=== PATIENT | female | born 2005 | race Caucasian/White ===

== ENCOUNTER 2023-05-11 10:35 | Outpatient (CLI) | payer OTHER, SELFPAY ==
[2023-05-11 12:25] LABS: Basophils Percent Auto 0.3 % (0.2-1.2); Eosinophils Absolute Auto 0.1 K/mm3 (0-0.3); Eosinophils Percent Auto 1.1 % (0-4.4); Hemoglobin 12.2 g/dL (12.0-15.0); Immature Granulocyte Absolute 0.06 K/mm3 (0.00-0.031); Immature Granulocyte Percent A 0.5 % (0-0.5); Lymphocytes Absolute Auto 2.13 K/mm3 (0.9-3.2); Lymphocytes Percent Auto 17.9 % (18.3-44.2); Mean Corpuscular Hemoglobin 29.3 pg (26-34); Mean Corpuscular Volume 88.9 fl (80-100); Mean Platelet Volume 8.8 fl (7.4-10.4); Monocytes Absolute Auto 0.6 K/mm3 (0.1-0.6); Monocytes Percent Auto 5.2 % (2.6-8.5); Neutrophils Absolute Auto 8.9 K/mm3 (1.3-6.7); Platelet Count Result 304 k/mm3 (150-375); Red Blood Count 4.16 M/mm3 (4.2-5.4); White Blood Count 11.9 K/mm3 (4.5-10.0)
[2023-05-11 12:36] LABS: Glucose 1 Hour PP 50gm Dose 102 mg/dL
[2023-05-11 13:13] LABS: Hepatitis B Surface Antigen Negative (Negative)
[2023-05-11 13:19] LABS: HIV 1/2 Ab P24 Ag Result Negative (Negative)
[2023-05-11 13:55] LABS: Rubella IgG Antibody > 110.0 IU/ML
[2023-05-14 07:41] LABS: Rapid Plasma Reagin Non-Reactive (NonReactive)
[2023-05-16 04:57] LABS: Varicella IgG Antibody <135.00 Index (>=165.00)
[2023-05-16 11:37] LABS: CMV IgG Antibody <0.60 U/mL (<0.60)
== END 2023-05-11 10:36 | disposition home or self-care (01) ==
PROVIDERS: PCP Pediatrics; Visit Provider Obstetrics & Gynecology
DX: N94.89 Other specified conditions associated with female genital organs and menstrual cycle (principal); N91.2 Amenorrhea, unspecified; E66.9 Obesity, unspecified
CPT/HCPCS: 36415; 82947; 84443; 84702; 85025; 86592; 86644; 86703; 86747; 86762; 86787; 86850; 86900; 86901; 87086; 87340; G0432

== ENCOUNTER → 2023-05-14 11:43 | Outpatient (CLI) | payer OTHER, SELFPAY ==
--- NOTE | ~2023-05-14 | US_ITS ---
EXAMINATION: US OB <=14 wk fetus w TV DATE: 05/14/2023 12:05 INDICATION: Status post dating of during first trimester TECHNIQUE: Real-time pelvic ultrasound utilizing both a transvaginal and transabdominal probe was pe rformed. The interpreting radiologist was not present for the study. COMPARISON: None. FINDINGS: The uterus measures 8.2 x 4.5 x 6.0 cm. There is an intrauterine gestational sac. A yolk sac and fet al pole are identified. The crown rump length measures 1.2 cm, which correlates with an estimated ges tational age of 7 weeks and 3 days. heart motion is identified measuring 143 beats per minute ( bpm) by M-mode Doppler. The right ovary is not visualized The left ovary measures 3.9 x 3.9 x 3.3 cm. 3.1 cm anechoic cyst/fo llicle at the left ovary. There is no free fluid in the pelvis. IMPRESSION: 1. Single living fetus heart rate of 143 bpm. 2. Gestational age by ultrasound of 7 weeks 3 day(s) +/- 5 day(s) with ultrasound estimated date of delivery (RAFAEL) of 12/28/2023. Reviewed, dictated and finalized at location A. IMPRESSION: 1. Single living fetus heart rate of 143 bpm. 2. Gestational age by ultrasound of 7 weeks 3 day(s) +/- 5 day(s) with ultraso und estimated date of delivery (RAFAEL) of 12/28/2023.
== END ==
PROVIDERS: PCP Obstetrics & Gynecology; Visit Provider Obstetrics & Gynecology
DX: Z36.89 Encounter for other specified antenatal screening (principal); Z3A.01 Less than 8 weeks gestation of pregnancy
CPT/HCPCS: 76801; 76817

== ENCOUNTER → 2023-08-17 11:18 | Outpatient (CLI) | payer OTHER, SELFPAY ==
--- NOTE | ~2023-08-17 | US_ITS ---
EXAMINATION: US OB /maternal detail DATE: 08/17/2023 11:48 INDICATION: Encounter for supervision of normal . TECHNIQUE: Real-time ultrasound of the pelvis was performed. COMPARISON: Ultrasound 05/14/2023 FINDINGS: There is a single living fetus in vertex presentation. The placenta is anterior, 7.5 cm from the cer vix. The cervical length is 2.7 cm on transabdominal images, which is normal.. heart rate is 12 3 beats per minute (bpm). The amniotic fluid volume is subjectively normal. The following biometric data were obtained: Biparietal diameter (BPD): 5.3 cm; head circumference (HC): 19.4 cm; abdominal circumference (AC): 15 .7 cm; femur length (FL): 3.5 cm. These measurements are concordant. Estimated weight is 393 g +/- 59 g, which correlates with the 45th percentile when 12/28/23 is u sed as estimated date of delivery. As single measurements, these parameters are each equal to the following estimated gestational ages: BPD: 22 weeks 0 days. HC: 21 weeks 4 days. AC: 20 weeks 6 days. FL: 21 weeks 0 days. estimated gestational age based solely on measurements from this exam is 21 weeks 3 days +/- 1 weeks 3 days. The cerebral ventricles, cerebellum, cisterna magna, nuchal fold, lip, and visualized portions of the spine are normal. The heart is normal. The diaphragm, stomach, kidneys, and bladder are normal. Ther e are two umbilical arteries to yield a 3-vessel cord. The cord insertion is normal. IMPRESSION: 1. Single living fetus in vertex presentation. 2. Estimated weight is 393 g +/- 59 g, which correlates with the 45th percentile when 12/28/23 is used as estimated date of delivery. This date was set by ultrasound on 05/14/2023. 3. Normal anatomic survey. Reviewed, dictated and finalized at location A. TER HELPER SIGN IMPRESSION: 1. Single living fetus in vertex presentation. 2. Estimated weight is 393 g +/- 59 g, which correlates with the 45th pe rcentile when 12/28/23 is used as estimated date of delivery. This date was set by ultrasound on 05/14/2023. 3. Normal anatomic survey.
== END ==
PROVIDERS: PCP Obstetrics & Gynecology; Visit Provider Obstetrics & Gynecology
DX: Z34.92 Encounter for supervision of normal pregnancy, unspecified, second trimester (principal)
CPT/HCPCS: 76805

== ENCOUNTER 2023-09-11 15:45 | Observation (INO) | payer OTHER, SELFPAY ==
--- NOTE | ~2023-09-11 | US_ITS ---
EXAMINATION: US OB transvaginal DATE: 09/11/2023 INDICATION: cervical length 24wks . TECHNIQUE: Real-time ultrasound of the pelvis was performed. COMPARISON: 05/14/2023 FINDINGS: There is a single living fetus in breech presentation, longitudinal lie. The placenta is anterior, w ell distant from the cervix. heart rate is 140 bpm. Cervical length 3.7 cm. There is fluid in t he endocervical canal. Mild V-shaped cervical funneling measuring 6 mm. IMPRESSION: Single living fetus in breech presentation. Minimal cervical funneling, with fluid in the endocervical canal may reflect a degree of cervical inc ompetence. Reviewed, dictated and finalized at location K. ITY TECH IMPRESSION: Single living fetus in breech presentation. Minimal cervical funneling, with fluid in the endocervical canal may reflect a degree of cervical incompetence.
[2023-09-11 16:02] VITALS: TEMP 36.6
[2023-09-11 16:08] VITALS: BP 115/65; PULSE 87
[2023-09-11 16:26] VITALS: BMI 48.6
[2023-09-11 16:51] LABS: Appearance Urine Cloudy (Clear); Bacteria Urine 3+ /hpf; Bilirubin Urine Negative (Negative); Blood Urine Negative (Negative); Color Urine Yellow (Yellow); Glucose Urine UA Negative (Negative); Ketones Urine Negative (Negative); Leukocyte Esterase Ur Negative LEU/UL (NEGATIVE); Need Manual Microscopic Reviewed; Nitrate Urine Negative (Negative); Non Pathogenic Casts 0-2; Protein Urine Negative (Negative); RBC Urine 0-2 /hpf (0-2); Specific Grav Ur 1.029 (1.001-1.035); Squamous Epithelial Cell Urine Many /hpf (Few); Urobilinogen Urine 0.2 mg/dL (<2.0); WBC Urine 21-50 /hpf (0-3)
[2023-09-11 17:06] LABS: Add Urine Microscopic? YES
--- NOTE | 2023-09-11 17:10 | PC.NURSE ---
Called Dr. Upton reported ultrasound report, reassuring tracing with no contractions. UA result reported. discharge order received
--- NOTE | 2023-09-12 09:01 | PM.OBTRLD ---
OB - Triage/Final Diagnosis Visit Information Reason for evaluation: threatened labor Comments/Additional reasons for admission: I have assessed the risk for this patient, Ivy Hendrickson, and determined that she would benefit from observation care. Evaluation Laboratory results: Laboratory Tests 09/11/23 16:05 Urine Color Yellow Urine Appearance Cloudy H Urine pH 6.0 Ur Specific [place] 1.029 Urine Protein Negative Urine Glucose (UA) Negative Urine Ketones Negative Ur Blood (Man) Negative Urine Nitrate Negative Urine Bilirubin Negative Urine Urobilinogen 0.2 Ur Leukocyte Esterase Negative Add Ur Microanalysis Reviewed Urine RBC 0-2 Urine WBC 21-50 Ur Squamous Epith Cells Many H Urine Bacteria 3+ H Urine Casts 0-2 Vital signs: Vital Signs - 24 hr 09/11/23 16:08 09/11/23 16:02 09/11/23 16:26 Temperature 98 F Pulse Rate 87 Blood Pressure 115/65 Oxygen Delivery Room Air
== END 2023-09-11 17:15 | disposition home or self-care (01) ==
PROVIDERS: Admitting Provider Obstetrics & Gynecology; Visit Provider Obstetrics & Gynecology
DX: O47.02 False labor before 37 completed weeks of gestation, second trimester (principal); O99.891 Other specified diseases and conditions complicating pregnancy; M54.9 Dorsalgia, unspecified; Z3A.24 24 weeks gestation of pregnancy
CPT/HCPCS: 76817; 81001; 87086; 87088; G0378; G0379

== ENCOUNTER 2023-10-19 11:25 | Outpatient (CLI) | payer OTHER, SELFPAY ==
[2023-10-19 12:55] LABS: Basophils Percent Auto 0.2 % (0.2-1.2); Eosinophils Absolute Auto 0.1 K/mm3 (0-0.3); Eosinophils Percent Auto 1.1 % (0-4.4); Hematocrit 33.5 % (37.0-47.0); Immature Granulocyte Absolute 0.07 K/mm3 (0.00-0.031); Immature Granulocyte Percent A 0.8 % (0-0.5); Lymphocytes Absolute Auto 1.54 K/mm3 (0.9-3.2); Lymphocytes Percent Auto 16.6 % (18.3-44.2); Mean Corpuscular HGB Conc 32.8 g/dl (32-36); Mean Corpuscular Hemoglobin 28.4 pg (26-34); Mean Corpuscular Volume 86.6 fl (80-100); Monocytes Absolute Auto 0.4 K/mm3 (0.1-0.6); Monocytes Percent Auto 4.7 % (2.6-8.5); Neutrophils Absolute Auto 7.1 K/mm3 (1.3-6.7); Neutrophils Percent Auto 76.6 % (45.5-73.1); Platelet Count Result 260 k/mm3 (150-375); Red Blood Count 3.87 M/mm3 (4.2-5.4); Red Cell Distribution Width 13.5 % (11.5-14.5); White Blood Count 9.3 K/mm3 (4.5-10.0)
[2023-10-19 13:07] LABS: Glucose 1 Hour PP 50gm Dose 145 mg/dL
[2023-10-19 13:46] LABS: HIV 1/2 Ab P24 Ag Result Negative (Negative)
== END 2023-10-19 11:26 | disposition home or self-care (01) ==
LOC: ANHLAB 11:27
PROVIDERS: Visit Provider Obstetrics & Gynecology
DX: Z34.92 Encounter for supervision of normal pregnancy, unspecified, second trimester (principal)
CPT/HCPCS: 36415; 82947; 85025; 86703; G0432

== ENCOUNTER 2023-10-25 08:05 | Outpatient (CLI) | payer OTHER, SELFPAY ==
[2023-10-25 08:33] LABS: Glucose Fasting Gestational 109 mg/dL (>/=95)
[2023-10-25 09:59] LABS: Glucose 1 Hour Gest 161 mg/dL (>/=180)
[2023-10-25 10:57] LABS: Glucose 2 Hour Gest 147 mg/dL (>/= 155)
[2023-10-25 11:57] LABS: Glucose 3 Hour Gest 116 mg/dL (>/=140)
== END 2023-10-25 08:06 | disposition home or self-care (01) ==
LOC: ANHLAB 08:06
PROVIDERS: Visit Provider Obstetrics & Gynecology
DX: R73.09 Other abnormal glucose (principal)
CPT/HCPCS: 36415; 82951; 82952

== ENCOUNTER → 2023-11-15 12:52 | Outpatient (CLI) | payer OTHER, SELFPAY ==
--- NOTE | ~2023-11-15 | US_ITS ---
EXAMINATION: US OB follow up DATE: 11/15/2023 13:38 INDICATION: Encounter for supervision of normal during third trimester. TECHNIQUE: Real-time ultrasound of the pelvis was performed. The interpreting radiologist was not pre sent for the study. COMPARISON: 09/11/2023 FINDINGS: There is a single living fetus in vertex presentation. The placenta is anterior and not low-lying. T here are few small hypoechoic venous lakes within the placenta. heart rate is 141 beats per min kassy (bpm). The amniotic fluid index is 9.1 cm, which is normal (5th%-95%: 7.4-24.5 cm at 33 weeks es timated gestational age). The internal cervical os is obscured the skull limiting assessment fo r cervical length. The following biometric data were obtained: BPD: 8.8 cm -> 35 weeks 4 days Head circumference: 32.1 cm -> 36 weeks 1 days Abdominal circumference: 32.2 cm -> 36 weeks 1 days Femur length: 6.7 cm -> 34 weeks 4 days These measurements are concordant. Head circumference to abdominal circumference ratio: 0.99 (normal range 0.93-1.09). Estimated weight: 2744 g (+/-) 412 g or 6 lbs. 1 oz. (+/-) 15 oz. IMPRESSION: 1. Single living fetus in vertex presentation with heart rate of 141 bpm. 2. Normal amniotic fluid index of 9.1 cm. 3. Estimated weight is 91st percentile by Hadlock criteria when 12/28/2023 is used as the estima janelle date of delivery (RAFAEL). Please correlate with clinical information or earlier ultrasounds for mos t accurate RAFAEL. Reviewed, dictated and finalized at location A. LE PRESS OPERATOR IMPRESSION: 1. Single living fetus in vertex presentation with heart rate of 141 bpm. 2. Normal amniotic fluid index of 9.1 cm. 3. Estimated weight is 91st percentile by Hadlock criteria when 12/28/2023 is used as the estimated date of delivery (RAFAEL). Please correlate with clinica l information or earlier ultrasounds for most accurate RAFAEL.
== END ==
PROVIDERS: PCP Obstetrics & Gynecology; Visit Provider Obstetrics & Gynecology
DX: Z34.90 Encounter for supervision of normal pregnancy, unspecified, unspecified trimester (principal)
CPT/HCPCS: 76816

== ENCOUNTER 2023-12-14 08:21 | Outpatient (CLI) | payer OTHER, SELFPAY ==
--- NOTE | ~2023-12-14 | US_ITS ---
EXAMINATION: US OB follow up DATE: 12/14/2023 11:04 INDICATION: Chondral fissure progression of normal during third trimester TECHNIQUE: Real-time ultrasound of the pelvis was performed. The interpreting radiologist was not pre sent for the study. COMPARISON: None. FINDINGS: There is a single living fetus in vertex presentation. A few hypoechoic venous lakes within the place nta which is anterior and not low-lying. heart rate is 138 beats per minute (bpm). The amniotic fluid index is 15.8 cm, which is normal (5th%-95%: 7.3-23.9 cm at 38 weeks estimated gestational ag e) . The following biometric data were obtained: BPD: 9.4 cm -> 38 weeks 3 days Head circumference: 33.8 cm -> 38 weeks 6 days Abdominal circumference: 37.9 cm -> 41 weeks 6 days Femur length: 7.5 cm -> 38 weeks 3 days Femur length to abdominal circumference ratio of 19.79 is slightly below the normal range of 20.0-24. 0. These measurements are otherwise concordant. Head circumference to abdominal circumference ratio: 0.89 (normal range 0.88-1.05). Estimated weight: 4069 g (+/-) 610 g or 9 lbs. 0 oz. (+/-) 1 lb. 6 oz. IMPRESSION: 1. Single living fetus in vertex presentation with heart rate of 138 bpm. 2. Normal amniotic fluid index of 15.8 cm. 3. Estimated weight is >97th percentile by Hadlock criteria when 12/28/2023 is used as the estim ated date of delivery (RAFAEL). Please correlate with clinical information or earlier ultrasounds for mo st accurate RAFAEL. 4. Discordant biometric data with femur length to abdominal circumference ratio slightly below the no rmal range. Reviewed, dictated and finalized at location B. IMPRESSION: 1. Single living fetus in vertex presentation with heart rate of 138 bpm. 2. Normal amniotic fluid index of 15.8 cm. 3. Estimated weight is >97th percentile by Hadlock criteria when 4 is used as the estimated date of delivery (RAFAEL). Please correlate with clinic al information or earlier ultrasounds for most accurate RAFAEL. 4. Discordant biometric data with femur length to abdominal circumference ratio slightly below the normal range.
== END 2023-12-14 08:22 ==
PROVIDERS: PCP Obstetrics & Gynecology; Visit Provider Obstetrics & Gynecology
DX: Z34.92 Encounter for supervision of normal pregnancy, unspecified, second trimester (principal)
CPT/HCPCS: 76816

== ENCOUNTER 2023-12-19 11:42 | Outpatient (RCR) | payer OTHER, BC, SELFPAY ==
[2023-12-19 13:28] VITALS: BP 134/76; PULSE 82
== END 2024-03-18 23:59 | disposition home or self-care (01) ==
LOC: ANHOBOP 11:42
PROVIDERS: PCP Obstetrics & Gynecology; Visit Provider Obstetrics & Gynecology
DX: O36.8130 Decreased fetal movements, third trimester, not applicable or unspecified (principal); Z3A.38 38 weeks gestation of pregnancy
CPT/HCPCS: 59025

== ENCOUNTER 2023-12-21 05:32 | Inpatient (IN) | payer OTHER, SELFPAY ==
[2023-12-20 08:30] VITALS: BMI 54.1
[2023-12-21] VITALS (56 sets, daily range): BP systolic 99–135; BP diastolic 39–96; PULSE 59–115; RESP 14–18; TEMP 36.3–36.9; O2SAT 96–100
[2023-12-21] MEDS: ACETAMINOPHEN 500 MG TABLET 1000 MG PO (05:53)
[2023-12-21] MEDS: LACTATED RINGERS 1,000 ML 125 ML IV CONT ×2 (06:04→07:20)
[2023-12-21 06:13] LABS: Basophils Percent Auto 0.2 % (0.2-1.2); Eosinophils Absolute Auto 0.1 K/mm3 (0-0.3); Eosinophils Percent Auto 0.9 % (0-4.4); Hematocrit 35.4 % (37.0-47.0); Hemoglobin 11.2 g/dL (12.0-15.0); Immature Granulocyte Absolute 0.09 K/mm3 (0.00-0.031); Immature Granulocyte Percent A 0.6 % (0-0.5); Lymphocytes Absolute Auto 2.23 K/mm3 (0.9-3.2); Mean Corpuscular HGB Conc 31.6 g/dl (32-36); Mean Corpuscular Hemoglobin 25.7 pg (26-34); Mean Corpuscular Volume 81.4 fl (80-100); Monocytes Absolute Auto 0.8 K/mm3 (0.1-0.6); Monocytes Percent Auto 5.9 % (2.6-8.5); Neutrophils Absolute Auto 10.7 K/mm3 (1.3-6.7); Neutrophils Percent Auto 76.4 % (45.5-73.1); Platelet Count Result 299 k/mm3 (150-375); Red Blood Count 4.35 M/mm3 (4.2-5.4)
--- NOTE | 2023-12-21 06:14 | LDADM ---
This patient, Ivy Hendrickson, was admitted to Labor/Delivery/Recovery 120 on 12/21/23 at 05:32. Plans for , pain management and were discussed with patient. Patient/family oriented to hospital policies and general routines including ID bracelet, bed and alarms, visiting hours, pain management, procedures, bathroom and other care routines, personal items, smoking policy, room service/diet and guest tray routines, security routines, and visiting hours. Patient/Family are encouraged to report perceived risks to care and to ask questions if they do not understand what they are told or what they should do. See OBIX for further documentation.
--- NOTE | 2023-12-21 06:35 | PM.IMHP ---
H&P: HPI History of Present Illness Date/Time: 12/21/23 06:35 Chief Complaint: scheduled Narrative: Ivy is a 18yo @ 39.0wks who presents for scheduled primary due to LGA. At 38wk, the EFW was >97%ile with AC (out of range and measuring 42wks). She had an abnormal glucola and her 3 hour was normal, but her fasting was elevated and was encouraged to follow a diabetic diet. She has been counseled extensively and the risks and benefits of IOL vs pLTCS. She desires to proceed with surgery. She reports good movements. No vb or lof. Irregular contractions. Her is complicated by: - Obesity - Elevated 1 hour, normal 3 hour - CMV, parvo, varicella non-immune - LGA fetus Review of Systems Constitutional: Constitutional: Denies chills, Denies fever(s) and Denies headache(s) Eyes: Eyes: Denies change in vision ENT: Denies headache(s) Cardiovascular: Cardiovascular: Denies chest pain and Denies dyspnea Respiratory: Respiratory: Denies dyspnea Genitourinary: Genitourinary: Denies abnormal vaginal bleeding and Denies vaginal discharge Neurologic: Denies headache(s) Psychiatric: Psychiatric: Denies anxiety and Denies depression [facility] Past Medical History Medical History Encounter for Nexplanon removal 10/20/2019 Encounter for screening examination for sexually transmitted disease Nexplanon insertion 12/2018 care in second trimester Surgical History Surgical History H/O gynecological procedure 12/07/2020 [place] teeth removed Family History Family History (Updated 12/21/23 @ 06:19 by Cindy Payne RN) Grandparent Family history of chronic obstructive pulmonary disease Hypertension Cerebrovascular accident Renal failure syndrome Father Hypertension Mother Rheumatoid arthritis Other No problems noted. Other Diabetes mellitus Social History Social History Years smoked: 4 Smoking status: Current every day smoker Tobacco type: e-cigarettes/vaping Second hand tobacco smoke exposure: Yes Alcohol intake: never Substance use: never Substance use type: does not use Last use: daily Do You Feel Safe in your Home?: Yes Lack of Transportation: No Lack of Food: Never True Current Housing: I Have Housing Concerned About Future Housing: No Difficulty Paying Gas/Electric Bills: No Difficulty Paying for Meds: No Currently Unemployed: No Education: Grade School Difficulty w/ Childcare or Family Care: No Living arrangements: with family Additional living arrangements comments: single Occupation/Education: occupation Additional occupation/education comments: [employer] Gender identity (if verbalized by the patient): Female Sexual Orientation (if Verbalized by the Patient): Straight or Heterosexual Spiritual care concerns: No Meds Home Medications and Allergies Home Medications Medication Instructions Recorded Confirmed Type vitamin#30 30 mg iron-10 1 cap PO DAILY #120 caps 06/06/23 12/21/23 Rx mg iron-folic acid 1 mg-omg3 capsule Allergies Allergy/AdvReac Type Severity Reaction Status Date / Time No Known Allergies Allergy Verified 12/19/23 11:01 Vital Signs Vital Signs - 24 hr 12/21/23 05:51 12/21/23 05:56 12/21/23 06:11 Pulse Rate 115 H Blood Pressure 127/81 Pulse Oximetry 99 Oxygen Delivery Room Air Exam Const: General: cooperative, comfortable, no acute distress and obese Nutritional Appearance: obese Orientation/consciousness: patient oriented x3 Resp: Effort & Inspection: normal respiratory effort Cardio: Rate: regular rate GI: GI Palp: No abdominal tenderness : Other: FHT's: 130's/ mod gina/ + accels/ occ variable decels - cat 2, reassuring TOCO: irregualr ctxs Memb
--- NOTE | 2023-12-21 06:43 | WPDHPUPDATE1 ---
History and Physical Update Update Date/Time: 12/21/23 06:43 History and Physical has been reviewed, including an updated exam of the patient. There are NO changes in the patient's condition. Risks, benefits, and alternatives have been discussed and questions answered. Patient agrees to proceed with primary low transverse section.
--- NOTE | 2023-12-21 07:08 | WPDANESEPPF ---
Anes - Initial Pre Proc Eval Procedure: Operation Date: 12/21/23 07:30 Proposed Procedures p Primary Section - Denae Dixon MD Date/Time: 12/21/23 07:08 Surgeon: Denae Dixon MD Pre Op Diagnosis: C/S Patient Data Age: 18 Gender: F Height: 1.52 m Weight: 125.6 kg Last Vital Signs Pulse 115 H 12/21/23 05:51 BP 127/81 12/21/23 05:51 Pulse Ox 99 12/21/23 05:56 O2 Del Method Room Air 12/21/23 06:11 Allergies Allergy/AdvReac Type Severity Reaction Status Date / Time No Known Allergies Allergy Verified 12/19/23 11:01 Home Medications Medication Instructions Recorded Confirmed Type vitamin#30 30 mg iron-10 1 cap PO DAILY #120 caps 06/06/23 12/21/23 Rx mg iron-folic acid 1 mg-omg3 capsule Laboratory Tests 12/21/23 06:05 WBC 14.0 H K/mm3 (4.5-10.0) RBC 4.35 M/mm3 (4.2-5.4) Hgb 11.2 L g/dL (12.0-15.0) Hct 35.4 L % (37.0-47.0) MCV 81.4 fl (80-100) MCH 25.7 L pg (26-34) MCHC 31.6 L g/dl (32-36) RDW 14.0 % (11.5-14.5) Plt Count 299 k/mm3 (150-375) MPV 10.0 fl (7.4-10.4) Immature Gran % (Auto) 0.6 H % (0-0.5) Neut % (Auto) 76.4 H % (45.5-73.1) Lymph % (Auto) 16.0 L % (18.3-44.2) [place] % (Auto) 5.9 % (2.6-8.5) Eos % (Auto) 0.9 % (0-4.4) Baso % (Auto) 0.2 % (0.2-1.2) Lymph # (Auto) 2.23 K/mm3 (0.9-3.2) [place] # (Auto) 0.8 H K/mm3 (0.1-0.6) Eos # (Auto) 0.1 K/mm3 (0-0.3) Baso # (Auto) 0.0 K/mm3 (0.0-0.1) Abs Immat Gran (auto) 0.09 H K/mm3 (0.00-0.031) Absolute Neuts (auto) 10.7 H K/mm3 (1.3-6.7) Absolute Nucleated RBC 0.000 K/mm3 (0.0-0.012) Nucleated RBC % 0.0 % (0.0-0.2) RPR Pending Patient hx anesthesia problems: none Family hx anesthesia problems: none Results Review: All pre-operative results and documents have been reviewed as part of the pre-operative evaluation. [facility] Past Medical History Medical History Encounter for Nexplanon removal 10/20/2019 Encounter for screening examination for sexually transmitted disease Nexplanon insertion 12/2018 care in second trimester Surgical History Surgical History H/O gynecological procedure 12/07/2020 [place] teeth removed Family History Family History Grandparent Family history of chronic obstructive pulmonary disease Hypertension Cerebrovascular accident Renal failure syndrome Father Hypertension Mother Rheumatoid arthritis Other No problems noted. Other Diabetes mellitus Social History Social History Years smoked: 4 Smoking status: Current every day smoker Tobacco type: e-cigarettes/vaping Second hand tobacco smoke exposure: Yes Alcohol intake: never Substance use: never Substance use type: does not use Last use: daily Do You Feel Safe in your Home?: Yes Lack of Transportation: No Lack of Food: Never True Current Housing: I Have Housing Concerned About Future Housing: No Difficulty Paying Gas/Electric Bills: No Difficulty Paying for Meds: No Currently Unemployed: No Education: Grade School Difficulty w/ Childcare or Family Care: No Living arrangements: with family Additional living arrangements comments: single Occupation/Education: occupation Additional occupation/education comments: [employer] Gender identity (if verbalized by the patient): Female Sexual Orientation (if Verbalized by the Patient): Straight or Heterosexual Spiritual care concerns: No Anes - Eval Final PreProcedure Day of Procedure 12/21/23 07:08 Patient weight: morbidly obese Heart: regular rate and rhythm Lungs: clear to auscultation Airway: Mallampati scale class II Annika
[2023-12-21] MEDS: ONDANSETRON INJ 4 MG/2 ML VIAL IV PUSH (07:12)
[2023-12-21] MEDS: FAMOTIDINE 20 MG/2 ML VIAL IV PUSH (07:12)
[2023-12-21] MEDS: ceFAZolin 3 GM/D5W 100 ML 100 ML IVPB (07:30)
[2023-12-21] MEDS: miSOPROStol 200 MCG TABLET 800 MCG RECTAL (08:50)
--- NOTE | 2023-12-21 09:01 | W.PM.OBCSD ---
OB - Delivery Note Procedure Delivery date: 12/21/23 Pre-op diagnosis: Macrosomia Post-op Diagnosis: Same Prior to decision for section, ACOG/SMFM labor guidelines were considered and discussed with the patient and staff. Decision made to proceed with the section.: Yes Procedure Performed: Primary Primary branch: low cervical, transverse Surgeon: Denae Dixon MD Anesthesia type: Spinal Description of Procedure/Findings: Female , cephalic. Normal bilateral fallopian tubes. Left ovary with 5cm clear cyst. Meconium, particulate fluid Specimen: Yes (placenta) Estimated Blood Loss: 1,065 Drains: No Packing: No Pathology: Yes Complications: No immediate complications Condition: Stable Disposition: Floor [place] Baby Date of : 12/21/23 Time of : 08:11 Weeks of gestation at delivery: 39 Infant gender: Female Weight (pounds): 8 Weight (ounces): 11 presentation: vertex Placenta delivery description: Expressed Cord Vessel Description: 3 Vessels and Delayed Cord Clamping score one minute: 8 score five minutes: 8 Narrative: Ivy was counseled on all risks and benefits in detail. She was taken to the operating room where spinal was placed. She was then prepped and draped in the normal sterile fashion. She received 3g Ancef and a time out was performed. A Pfannenstiel incision was made in the skin and carried down to the underlying fascia. The fascia was nicked on either side of the midline and the fascial incision was extended laterally and superiorly using curved Mendiola scissors. The fascia was then elevated using Nohemy clamps and the underlying rectus muscles were dissected off the fascia, superiorly and inferiorly. The rectus muscles were then in the midline and the peritoneum was entered bluntly. Once adequate exposure was obtained, a Mobius self retractor was placed within the abdomen. A bladder flap was created. A low transverse incision was made on the lower uterine segment and particulate, meconium fluid was noted. The occiput was brought to the hysterotomy and the head was easily delivered. The shoulders and body then followed without complications. The had spontaneous cry and the mouth and nose were bulb suctioned. The cord was clamped and cut and the infant was handed off to the awaiting pediatric nurse. A segment of the cord was collected for cord gases. The remaining cord blood was collected for typing. With pitocin infusing, the placenta delivered with gentle traction on the cord without complications. The uterus was then cleared out of all clots and debris using a clean, moist lap. A large venous sinus in the front of the uterus was noted to be bleeding; ring clamps were placed to help stop bleeding. The hysterotomy was then repaired in a running, interlocking fashion using 0 Vicryl. A second layer imbricating suture was then made using 0 Vicryl. The hysterotomy was found to be hemostatic and good uterine tone was noted. The bilateral adnexa were examined and the left ovary was found to have a 4-5cm simple cyst. The pelvis was cleared of all clots and fluid. The Mobius retractor was removed from the abdomen. The peritoneum, muscle, and fascia were examined and made hemostatic with bovie cautery. The fascia was then repaired using a 0 Vicryl suture in a running fashion. The subcutaneous tissue was then irrigated and made hemostatic with bovie cautery. The subcutaneous tissue was then reapproximated using 2-0 Vicryl. The skin was then closed using 4-0 Monocryl in a running subcuticular fashion. A LAMONT dressing was placed over her incision. Sponge, lap, needle and instrument counts were correct at the end of the procedure x2. Cytotec 800mcg was placed rectally to prevent further bleeding. The patient tolerated the procedure well and was taken to recovery in a stable condition. [facility] Delivery Billing Delivery Delivery: Delivery Ch
[2023-12-21] MEDS: ACETAMINOPHEN 325 MG TABLET 650 MG PO ×2 (12:57→18:55)
[2023-12-21] MEDS: KETOROLAC 15 MG/ML VIAL (*BKC) IV PUSH ×2 (12:58→18:57)
[2023-12-21] MEDS: SIMETHICONE 80 MG TAB.CHEW PO ×2 (12:58→17:25)
[2023-12-21] MEDS: DEXTROSE 5%/0.45% SOD CHL 1,000 ML 125 ML IV CONT (13:33)
[2023-12-21] MEDS: DOCUSATE SODIUM 100 MG CAPSULE PO (17:25)
[2023-12-21] MEDS: KCL 20 MEQ/D5/0.45% SOD CHL 1,000 ML 125 ML IV CONT (21:29)
[2023-12-22] MEDS: ACETAMINOPHEN 325 MG TABLET 650 MG PO ×4 (01:19→22:15)
[2023-12-22] MEDS: KETOROLAC 15 MG/ML VIAL (*BKC) IV PUSH ×2 (01:20→07:45)
[2023-12-22 04:15] VITALS: BP 131/79; PULSE 95; RESP 18; TEMP 36.5; O2SAT 100
[2023-12-22] MEDS: DEXTROSE 5%/0.45% SOD CHL 1,000 ML 125 ML IV CONT (05:29)
[2023-12-22 05:53] LABS: Basophils Percent Auto 0.2 % (0.2-1.2); Eosinophils Absolute Auto 0.1 K/mm3 (0-0.3); Eosinophils Percent Auto 0.7 % (0-4.4); Hematocrit 25.1 % (37.0-47.0); Hemoglobin 7.6 g/dL (12.0-15.0); Immature Granulocyte Absolute 0.08 K/mm3 (0.00-0.031); Immature Granulocyte Percent A 0.7 % (0-0.5); Lymphocytes Absolute Auto 1.85 K/mm3 (0.9-3.2); Mean Corpuscular HGB Conc 30.3 g/dl (32-36); Mean Corpuscular Hemoglobin 25.7 pg (26-34); Mean Corpuscular Volume 84.8 fl (80-100); Monocytes Percent Auto 8.4 % (2.6-8.5); Neutrophils Absolute Auto 8.6 K/mm3 (1.3-6.7); Platelet Count Result 220 k/mm3 (150-375); Red Blood Count 2.96 M/mm3 (4.2-5.4); Red Cell Distribution Width 14.1 % (11.5-14.5); White Blood Count 11.6 K/mm3 (4.5-10.0)
[2023-12-22] MEDS: DOCUSATE SODIUM 100 MG CAPSULE PO ×2 (07:46→19:17)
[2023-12-22] MEDS: SIMETHICONE 80 MG TAB.CHEW PO ×2 (07:46→14:36)
[2023-12-22] MEDS: MULTIVIT/MIN/PREN/FOL AC/IRON TABLET 1 TAB PO (07:46)
[2023-12-22] MEDS: POLYSACCHARIDE IRON COMPLEX 150 MG CAPSULE PO ×2 (07:46→19:17)
[2023-12-22 07:47] VITALS: BP 126/64; PULSE 101; RESP 16; TEMP 36.7; O2SAT 99
[2023-12-22] MEDS: IRON SUCROSE COMPLEX 500 MG in SODIUM CHLORIDE 0.9% IV 250 ML 79 MG IVPB (07:47)
--- NOTE | 2023-12-22 09:33 | P.PNOB_ITS ---
OB - PN: Subj Subjective Date/time seen: 12/22/23 09:33 S: Ambulating, pain well controlled, diet tolerated. O: Vital signs stable afebrile Abdomen: Positive bowel sounds soft. Incision with bandage intact. Labs: Noted A: /postoperative day 1... Adequate pain control, clinically stable. P: Routine /postoperative care. OB - PN: Obj Data Labs 12/22/23 05:36 Labs: Laboratory Results - last 24 hr 12/22/23 05:36 WBC 11.6 H RBC 2.96 L Hgb 7.6 L D Hct 25.1 L MCV 84.8 MCH 25.7 L MCHC 30.3 L RDW 14.1 Plt Count 220 MPV 10.0 Immature Gran % (Auto) 0.7 H Neut % (Auto) 74.0 H Lymph % (Auto) 16.0 L [place] % (Auto) 8.4 Eos % (Auto) 0.7 Baso % (Auto) 0.2 Lymph # (Auto) 1.85 [place] # (Auto) 1.0 H Eos # (Auto) 0.1 Baso # (Auto) 0.0 Abs Immat Gran (auto) 0.08 H Absolute Neuts (auto) 8.6 H Absolute Nucleated RBC 0.000 Nucleated RBC % 0.0 OB - PN A/P Time Spent With Patient Time: Total time spent is greater than 50% in coordination of care (as documented) at patient's floor/unit and/or counseling patient:
--- NOTE | 2023-12-22 13:39 | WPDANLDPN2 ---
Anes-Prog Note L&D Date/Time: 12/22/23 13:39 Comfortable throughout: section Neuraxial method: spinal Epidural/Spinal procedure site: clean & non-tender Neuro status: Neuro function grossly intact. Cardiovascular status: normal Respiratory status: normal Airway patency: baseline Mental status: baseline Post-Op hydration status: normal Vital Signs: Last Vital Signs Temp 36.7 C 12/22/23 07:47 Pulse 101 H 12/22/23 07:47 Resp 16 12/22/23 07:47 BP 126/64 12/22/23 07:47 Pulse Ox 99 12/22/23 07:47 O2 Del Method Room Air 12/22/23 07:47 Pain score (VAS): 2/10 I/O: Intake & Output 12/21/23 12/22/23 12/22/23 23:59 07:59 15:59 Intake Total 1440 2200 Output Total 250 2100 Balance 1190 100 Post-procedural complaints: none Patient feedback: Patient satisfied with anesthetic care.
--- NOTE | 2023-12-22 13:40 | WPDANLDNPN2 ---
Anes-Prog Note L&D-Neuraxial Date/Time: 12/22/23 13:40 Neuraxial medications: intrathecal PF morphine Opiod-related complaints: pruritis mild, no treatment Patient feedback: Patient satisfied with post-operative pain management.
[2023-12-22] MEDS: IBUPROFEN 600 MG TABLET PO ×2 (14:36→22:15)
[2023-12-22] MEDS: HYDROcodone/acetaminophen (*CRX) 5-325 MG TABLET 1 TAB PO (19:17)
[2023-12-22] MEDS: LIDOCAINE 5% PATCH 1 PATCH TRANSDERM (20:51)
[2023-12-22 21:33] VITALS: BP 145/91; PULSE 104; RESP 16; TEMP 36.6; O2SAT 99
[2023-12-22] MEDS: HYDROcodone/acetaminophen (*CRX) 10-325 MG TABLET 1 TAB PO (22:15)
[2023-12-23] MEDS: IBUPROFEN 600 MG TABLET PO ×2 (04:04→09:33)
[2023-12-23] MEDS: HYDROcodone/acetaminophen (*CRX) 10-325 MG TABLET 1 TAB PO ×2 (04:04→09:32)
[2023-12-23 07:46] VITALS: BP 143/75; PULSE 103; RESP 20; TEMP 36.8; O2SAT 100
--- NOTE | 2023-12-23 08:48 | P.PNOB_ITS ---
OB - PN: Subj Subjective Date/time seen: 12/23/23 08:48 Narrative: POD#2 Ivy reports doing well today. 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 Her pain is controlled, when taking the medications but she hasn't had anything since early this morning-- would like something for pain. She is tolerating regular diet, voiding, passing gas, and ambulating without issues. She denies any issues with her incision/LAMONT dressing. She is bottle feeding. OB - PN: Obj Data Labs 12/22/23 05:36 OB - PN A/P Assessment and Plan (1) S/P primary low transverse : Code(s): Z98.891 - History of uterine scar from previous surgery Status: Acute (2) Anemia affecting first : Code(s): O99.019 - Anemia complicating , unspecified trimester Status: Acute Plan day: 2 Plan: routine care and discharge home (tomorrow) Comments: - PO pain meds - Regular diet - Ambulation and hydration encouraged - Continue putting baby to breast q2-3hr - Repeat H/H pending, s/p 500mg IV of venofer x1 - Had one elevated BP (but over due for pain meds) - If BP and H/H stable, can d/c this PM Time Spent With Patient Time: Total time spent is greater than 50% in coordination of care (as documented) at patient's floor/unit and/or counseling patient: Review of Systems Constitutional: Constitutional: Denies chills, Denies fever(s) and Denies headache(s) Eyes: Eyes: Denies change in vision ENT: Denies dizziness and Denies headache(s) Cardiovascular: Cardiovascular: Denies chest pain, Denies palpitations and Den ies dyspnea Respiratory: Respiratory: Denies cough and Denies dyspnea Gastrointestinal: Gastrointestinal: Denies nausea and Denies vomiting Genitourinary: Comments: normal bleeding Neurologic: Denies dizziness and Denies headache(s) Endocrine: Endocrine: Denies palpitations Exam Const: General: cooperative, comfortable and no acute distress Orientation/consciousness: patient oriented x3 Resp: Effort & Inspection: normal respiratory effort Auscultation: clear to auscultation bilaterally Cardio: Rate: regular rate GI: Inspection: non-distended and incision (covered with clean dressing) GI Palp: Yes abdominal tenderness (appropriate) and Yes Soft to palpation Auscultation: normal bowel sounds : Other: fundus firm Skin: General skin exam: normal color Neuro: General: patient oriented x3 Extrem: General: normal to inspection Psych: Appearance: grossly normal Affect: normal affect Attitude: cooperative
[2023-12-23] MEDS: MULTIVIT/MIN/PREN/FOL AC/IRON TABLET 1 TAB PO (09:31)
[2023-12-23] MEDS: POLYSACCHARIDE IRON COMPLEX 150 MG CAPSULE PO (09:31)
[2023-12-23] MEDS: DOCUSATE SODIUM 100 MG CAPSULE PO (09:31)
[2023-12-23] MEDS: SIMETHICONE 80 MG TAB.CHEW PO ×2 (09:32→14:42)
[2023-12-23] MEDS: ACETAMINOPHEN 325 MG TABLET 650 MG PO (09:33)
[2023-12-23 10:22] LABS: Hematocrit 28.2 % (37.0-47.0); Hemoglobin 8.7 g/dL (12.0-15.0)
[2023-12-23 10:45] VITALS: BP 130/79
[2023-12-23] MEDS: HYDROcodone/acetaminophen (*CRX) 5-325 MG TABLET 1 TAB PO (14:42)
--- NOTE | 2023-12-24 07:20 | PM.OBDSVD ---
DS: Admitting Diagnosis Discharge Date 12/23/23 Admitting Diagnosis Primary planned for macrosomia DS: Discharge Diagnosis Discharge Diagnosis (1) S/P primary low transverse : Code(s): Z98.891 - History of uterine scar from previous surgery Status: Acute (2) Anemia affecting first : Code(s): O99.019 - Anemia complicating , unspecified trimester Status: Acute OB - DS: Summary OB Procedures : Ultrasound OB Procedures Intrapartum: low cervical, transverse OB Procedures: : Other (500mg IV venofer) Peripartum Data Infant Delivery Method: Section Procedures: Procedures Operation Date: 12/21/23 07:30 Actual Procedure Side Surgeon p Primary Section Not Applicable Denae Dixon MD complications: none [place] 1: Gender: Female Disposition of : home Status at Discharge Functional status at discharge: independent ambulation Overall status at discharge: patient is back to baseline Time Spent with Patient Time attestation: Total time spent providing and/or coordinating discharge services: Exam Const: General: cooperative, comfortable, no acute distress and obese Orientation/consciousness: patient oriented x3 Resp: Effort & Inspection: normal respiratory effort Auscultation: clear to auscultation bilaterally Cardio: Rate: regular rate GI: Inspection: non-distended and incision (covered with LAMONT dressing) GI Palp: No abdominal tenderness and Yes Soft to palpation Auscultation: normal bowel sounds : Other: fundus firm Skin: General skin exam: normal color Neuro: General: patient oriented x3 Extrem: General: normal to inspection Psych: Appearance: grossly normal Affect: normal affect Attitude: cooperative DS: Data Data Completed and Pending Pending studies at discharge: Pending at discharge 12/21/23 08:12 Surgical [PTH] Routine Labs on day of discharge: Labs from last 24 hours 12/23/23 09:30 Hgb 8.7 L Hct 28.2 L Discharge Plan Discharge Attending physician on discharge: Denae Dixon Discharging Clinician: Denae Dixon Anticipated Discharge Date/Time: 12/23/23 16:00 Patient Disposition: Home, Self-Care Activity: may shower and pelvic rest Diet: regular Wound Care Instructions: other - see discharge instructions Discharge Instructions: Education: Mom and Baby Guide Given to: Mother Follow-Up: Call your delivering provider's office for an appointment to be seen in: 4 Weeks Mom and baby should come to the [facility] for the follow-up appointment. Appointment Date/Time: Sunday, December 24, 2023 at 8:00 am What to expect at your follow-up visit: Physical Assessment Call [phone] if you are unable to keep your appointment time. BREAST CARE: * Wear a snug supportive bra. * For engorgement discomfort: Bottle Feeding: * May apply ice packs ABDOMINAL INCISION: (if applicable) * Allow incision to air dry * Do NOT use lotions for powders on your incision * When showering, allow soap and water to run over the incision, but do not wash incision EPISIOTOMY/PERINEAL CARE: * Until bleeding stops, use your sena bottle after urinating * Change your pad frequently throughout the day * You may take sitz baths several times a day (fill your bathtub with warm water and soak for 20 minutes.) Do NOT bathe in the water * No tub baths until seen by your physician - You may shower ACTIVITY: * Rest as much as possible. * Do not exercise or lift anything heavier than your baby (such as laundry or other children.) * Avoid stairs or driving as much as possible. * Do not put anything into the vagina. No douching, tampons, or sexual activity until seen by physician. NOTIFY PHYSICIAN IF YOU HAVE ANY QUESTIONS OR IF ANY OF THE FOLLOWING SYMPTOMS OCCUR:
[2023-12-24 14:20] VITALS: BP 135/80; PULSE 78; RESP 18; TEMP 36.9; O2SAT 100
[2023-12-24 16:53] LABS: Rapid Plasma Reagin Non-Reactive (NonReactive)
== END 2023-12-23 17:00 | disposition home or self-care (01) | DRG 788 ==
LOC: ANHLDR 05:35 → ANHOB2 11:42
PROVIDERS: Admitting Provider Obstetrics & Gynecology; PCP Obstetrics & Gynecology; Visit Provider Obstetrics & Gynecology
PROC: 10D00Z1 Extraction of Products of Conception, Low, Open Approach (ICD-10-PCS; CPT 59514; principal; 2023-12-21 07:30)
DX: O36.63X0 Maternal care for excessive fetal growth, third trimester, not applicable or unspecified (principal); O99.214 Obesity complicating childbirth; O99.334 Smoking (tobacco) complicating childbirth; F17.290 Nicotine dependence, other tobacco product, uncomplicated; O77.0 Labor and delivery complicated by meconium in amniotic fluid; Z3A.39 39 weeks gestation of pregnancy; Z37.0 Single live birth
CPT/HCPCS: 36415; 85014; 85018; 85025; 86592; 86850; 86900; 86901; 88307; A9270; J0690; J1885; J2274; J2371; J2405; J2590; J3480; J7050; J7120